=== PATIENT | female | born 1985 | race Caucasian/White ===

== ENCOUNTER 2023-08-14 07:41 | Outpatient (RCR) | payer OTHER, SELFPAY | END 2023-08-14 23:59 | disposition home or self-care (01) | LOC: RPT 07:41 | PROVIDERS: ATTENDING PHYSICIAN Obstetrics & Gynecology; FAMILY PHYSICIAN Family Medicine | DX: R10.2 Pelvic and perineal pain (principal); N39.3 Stress incontinence (female) (male); M62.81 Muscle weakness (generalized); Z73.6 Limitation of activities due to disability | CPT/HCPCS: 97163; 97530 ==

== ENCOUNTER 2023-09-18 10:08 | Outpatient (RCR) | payer OTHER, SELFPAY | END 2023-09-18 23:59 | disposition home or self-care (01) | LOC: RPT 10:08 | PROVIDERS: ATTENDING PHYSICIAN Obstetrics & Gynecology; FAMILY PHYSICIAN Family Medicine | DX: O26.893 Other specified pregnancy related conditions, third trimester (principal); R10.2 Pelvic and perineal pain; N39.3 Stress incontinence (female) (male); M62.81 Muscle weakness (generalized); Z73.6 Limitation of activities due to disability; M54.50 Low back pain, unspecified | CPT/HCPCS: 76816; 97110; 97112; 97140; 97530 ==

== ENCOUNTER 2023-10-10 00:12 | Observation (INO) | payer OTHER, SELFPAY ==
[2023-10-10 00:29] VITALS: BP 128/79; BMI 28.7
== END 2023-10-10 01:43 | disposition home or self-care (01) ==
LOC: LDRP 00:12
PROVIDERS: ADMITTING PHYSICIAN Obstetrics & Gynecology; FAMILY PHYSICIAN Family Medicine
DX: O36.8130 Decreased fetal movements, third trimester, not applicable or unspecified (principal); Z3A.38 38 weeks gestation of pregnancy; Z86.16 Personal history of COVID-19
CPT/HCPCS: 76815; 59025; 36415; 86850; 86900; 86901; G0378

== ENCOUNTER 2023-10-17 19:01 | Outpatient (RCR) | payer OTHER, SELFPAY | END 2023-10-17 23:59 | disposition home or self-care (01) | LOC: RPT 19:01 | PROVIDERS: ATTENDING PHYSICIAN Obstetrics & Gynecology; FAMILY PHYSICIAN Family Medicine | DX: N39.3 Stress incontinence (female) (male) (principal); R10.2 Pelvic and perineal pain; M62.81 Muscle weakness (generalized); Z73.6 Limitation of activities due to disability | CPT/HCPCS: 97110; 97112; 97140; 97530 ==

== ENCOUNTER 2023-10-24 14:06 | Outpatient (RCR) | payer OTHER, SELFPAY | END 2023-10-24 15:27 | disposition home or self-care (01) | LOC: RPT 14:06 | PROVIDERS: ATTENDING PHYSICIAN Obstetrics & Gynecology; FAMILY PHYSICIAN Family Medicine | DX: O26.899 Other specified pregnancy related conditions, unspecified trimester (principal); R32 Unspecified urinary incontinence; Z3A.00 Weeks of gestation of pregnancy not specified; R10.2 Pelvic and perineal pain; N39.3 Stress incontinence (female) (male); M62.81 Muscle weakness (generalized); Z73.6 Limitation of activities due to disability | CPT/HCPCS: 97110; 97140; 97530 ==

== ENCOUNTER 2023-10-27 06:05 | Inpatient (IN) | payer OTHER, SELFPAY ==
[2023-10-27] MEDS: BICITRA 30 ML PO (06:55)
[2023-10-27] MEDS: LR 1000 IV (06:55)
[2023-10-27] MEDS: TYLENOL 1000 MG PO (06:55)
[2023-10-27 07:04] LABS: Hematocrit 31.3 % (37.0-47.0); Hemoglobin 10.4 g/dL (12.0-16.0); Mean Corp Hgb Conc. 33.2 g/dL (33.0-37.0); Mean Corpuscular Hgb 27.6 pg (27.0-31.0); Mean Platelet Volume 11.5 fL (7.4-10.4); Platelet Count 273 10^3/uL (130-400); Red Blood Cell Count 3.77 10^6/uL (4.20-5.40); Red Cell Dist. Width 13.6 % (11.5-14.5)
[2023-10-27 07:19] VITALS: BP 120/73; BMI 28.9
[2023-10-27 07:22] VITALS: BMI 28.9
[2023-10-27] MEDS: ANCEF 10 IV (07:55)
[2023-10-27] MEDS: PITOCIN 30 UNITS/NSS 500 ML IV (09:00)
[2023-10-27] MEDS: TYLENOL 650 MG PO ×3 (12:00→21:24)
[2023-10-27] MEDS: TORADOL 15 MG IV ×2 (14:11→20:04)
[2023-10-28] MEDS: TYLENOL 650 MG PO ×2 (01:52→16:15)
[2023-10-28] MEDS: TORADOL 15 MG IV ×2 (01:52→08:32)
[2023-10-28] MEDS: MYLICON 80 MG PO ×4 (02:00→22:54)
[2023-10-28 04:53] LABS: Hematocrit 25.4 % (37.0-47.0); Hemoglobin 8.6 g/dL (12.0-16.0); Mean Corp Hgb Conc. 33.9 g/dL (33.0-37.0); Mean Corpuscular Hgb 28.7 pg (27.0-31.0); Mean Corpuscular Volume 84.7 fL (81.0-99.0); Mean Platelet Volume 11.8 fL (7.4-10.4); Platelet Count 233 10^3/uL (130-400); Red Cell Dist. Width 13.5 % (11.5-14.5); White Blood Cell Count 16.4 10^3/uL (4.8-10.8)
--- NOTE | 2023-10-28 07:38 | W.PN.ANS.POP ---
Anesthesia Post Operative
- Anesthesia Post Op Note
Vital Signs Stable-See Nursing Note: Yes
Airway Patent: Yes
Adequate Pain Control: Yes
Change in Mental Status: No
Current Postoperative Nausea & Vomiting: No
Anesthesia Complications: No
General Anesthetic Recall: No
Unplanned Admission: No
Post Op Hydration Adequate: Yes
[2023-10-28] MEDS: FEOSOL 325 MG PO ×2 (08:31→19:51)
[2023-10-28] MEDS: SENOKOT-S 1 TABLET PO (08:32)
[2023-10-28] MEDS: MOTRIN 600 MG PO ×2 (16:24→22:54)
[2023-10-28] MEDS: PERCOCET 5/325 1 TABLET PO (22:00)
[2023-10-29] MEDS: TYLENOL 650 MG PO (05:14)
[2023-10-29] MEDS: MOTRIN 600 MG PO ×3 (05:14→20:23)
[2023-10-29] MEDS: FEOSOL 325 MG PO ×2 (08:52→20:22)
[2023-10-29] MEDS: SENOKOT-S 1 TABLET PO (08:52)
[2023-10-29] MEDS: MYLICON 80 MG PO ×2 (08:52→20:51)
[2023-10-29] MEDS: PERCOCET 5/325 1 TABLET PO ×2 (15:15→22:23)
[2023-10-30] MEDS: MOTRIN 600 MG PO (04:07)
[2023-10-30] MEDS: TYLENOL 650 MG PO ×2 (08:25→11:59)
[2023-10-30] MEDS: SENOKOT-S 1 TABLET PO (08:25)
[2023-10-30] MEDS: FEOSOL 325 MG PO (08:25)
[2023-10-30] MEDS: MYLICON 80 MG PO (08:25)
--- NOTE | 2023-10-30 10:49 | W.DS.TRANS ---
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
-
Discharge Instructions:
Discharge Diagnosis/Procedures section
Instructions:
Stand-Alone Forms: LDRP Delivery
Changes to Home Medications: No
Discharge Medications:
DC Medications w/original date entered in [facility]
Pnv 102/Iron/Folate/Dha 1 tab PO DAILY Supplement 06/07/21
acetaminophen 325 mg tablet 650 mg (2 x 325 mg) PO Q4HPRN PRN mild pain #0 tabs 10/28/23
ferrous sulfate 325 mg (65 mg iron) tablet (FeroSul) 325 mg PO BID #0 tabs 10/28/23
ibuprofen 600 mg tablet 600 mg PO Q6HPRN PRN cramps #30 tabs 10/28/23
sennosides 8.6 mg-docusate sodium 50 mg tablet (Stool Softener-Stimulant Laxative) 1 tab PO DAILYPRN PRN constipation #0 tabs 10/28/23
oxycodone-acetaminophen 5 mg-325 mg tablet 1 tab PO Q4HPRN PRN moderate pain #6 tabs 10/30/23
Home Medication Changes
Pending Results: No
Total time spent discharging patient (in min): 20
--- NOTE | 2023-10-30 10:50 | W.DS.TRANS ---
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
-
Discharge Instructions:
Discharge Diagnosis/Procedures section
Instructions:
Stand-Alone Forms: LDRP Delivery
Changes to Home Medications: No
Discharge Medications:
DC Medications w/original date entered in [facility]
Pnv 102/Iron/Folate/Dha 1 tab PO DAILY Supplement 06/07/21
acetaminophen 325 mg tablet 650 mg (2 x 325 mg) PO Q4HPRN PRN mild pain #0 tabs 10/28/23
ferrous sulfate 325 mg (65 mg iron) tablet (FeroSul) 325 mg PO BID #0 tabs 10/28/23
ibuprofen 600 mg tablet 600 mg PO Q6HPRN PRN cramps #30 tabs 10/28/23
sennosides 8.6 mg-docusate sodium 50 mg tablet (Stool Softener-Stimulant Laxative) 1 tab PO DAILYPRN PRN constipation #0 tabs 10/28/23
oxycodone-acetaminophen 5 mg-325 mg tablet 1 tab PO Q4HPRN PRN moderate pain #6 tabs 10/30/23
Home Medication Changes
Pending Results: No
[2023-10-31 12:39] LABS: Syphilis/T. pallidum Ab Reflex Negative (Negative)
== END 2023-10-30 12:57 | disposition home or self-care (01) | DRG 788 ==
LOC: LDRP 06:05
PROVIDERS: ADMITTING PHYSICIAN Obstetrics & Gynecology
PROC: 6A550ZT Pheresis of Cord Blood Stem Cells, Single (ICD-10-PCS; 2023-10-27)
PROC: 10D00Z1 Extraction of Products of Conception, Low, Open Approach (ICD-10-PCS; 2023-10-27)
PROC: 0HB7XZZ Excision of Abdomen Skin, External Approach (ICD-10-PCS; 2023-10-27)
DX: O34.211 Maternal care for low transverse scar from previous cesarean delivery (principal); N85.8 Other specified noninflammatory disorders of uterus; Z3A.40 40 weeks gestation of pregnancy; Z37.0 Single live birth; L91.0 Hypertrophic scar; O99.72 Diseases of the skin and subcutaneous tissue complicating childbirth; O48.0 Post-term pregnancy; O99.824 Streptococcus B carrier state complicating childbirth; O69.81X0 Labor and delivery complicated by cord around neck, without compression, not applicable or unspecified; O90.81 Anemia of the puerperium; D64.9 Anemia, unspecified
CPT/HCPCS: 85027; 86780; 86850; 86900; 86901

== ENCOUNTER → 2024-11-25 10:01 | Outpatient (REF) | payer BC, SELFPAY | LOC: PNTC 10:01 | PROVIDERS: ATTENDING PHYSICIAN Obstetrics & Gynecology | DX: O09.529 Supervision of elderly multigravida, unspecified trimester (principal) | CPT/HCPCS: 76811; 76817 ==

== ENCOUNTER 2025-04-03 08:07 | Inpatient (IN) | payer BC, SELFPAY ==
[2025-04-03 08:25] VITALS: BMI 27.5
[2025-04-03 08:26] VITALS: BP 127/82
[2025-04-03] MEDS: LR 1000 IV (08:45)
[2025-04-03 08:50] LABS: Hematocrit 32.0 % (37.0-47.0); Hemoglobin 10.6 g/dL (12.0-16.0); Mean Corp Hgb Conc. 33.1 g/dL (33.0-37.0); Mean Corpuscular Volume 79.6 fL (81.0-99.0); Platelet Count 237 10^3/uL (130-400); Red Cell Dist. Width 13.8 % (11.5-14.5)
[2025-04-03] MEDS: TYLENOL 975 MG PO (09:13)
[2025-04-03] MEDS: BICITRA 30 ML PO (09:38)
[2025-04-03] MEDS: ANCEF 10 IV (09:38)
[2025-04-03] MEDS: TORADOL 15 MG IV (18:45)
[2025-04-03] MEDS: MYLICON 80 MG PO ×2 (18:46→22:59)
[2025-04-03] MEDS: COLACE 100 MG PO (19:29)
[2025-04-04] MEDS: TORADOL 15 MG IV ×3 (00:13→12:56)
[2025-04-04 03:38] LABS: Hematocrit 27.1 % (37.0-47.0); Hemoglobin 9.1 g/dL (12.0-16.0); Mean Corp Hgb Conc. 33.6 g/dL (33.0-37.0); Mean Corpuscular Volume 80.7 fL (81.0-99.0); Platelet Count 210 10^3/uL (130-400); Red Cell Dist. Width 13.8 % (11.5-14.5)
[2025-04-04] MEDS: PRENATAL PLUS 1 TABLET PO (08:30)
[2025-04-04] MEDS: COLACE 100 MG PO ×2 (08:30→20:01)
[2025-04-04] MEDS: MYLICON 80 MG PO (08:30)
[2025-04-04] MEDS: FEOSOL 325 MG PO (08:30)
[2025-04-04 12:57] LABS: Syphilis/T. pallidum Ab Reflex Negative (Negative)
[2025-04-04] MEDS: MOTRIN 600 MG PO (20:01)
[2025-04-04] MEDS: TYLENOL 650 MG PO (20:01)
[2025-04-05] MEDS: ROXICODONE 5 MG PO ×2 (00:13→22:35)
[2025-04-05] MEDS: MOTRIN 600 MG PO ×4 (03:45→22:35)
[2025-04-05] MEDS: TYLENOL 650 MG PO ×3 (03:45→16:19)
[2025-04-05] MEDS: FEOSOL 325 MG PO (08:22)
[2025-04-05] MEDS: PRENATAL PLUS 1 TABLET PO (08:22)
[2025-04-05] MEDS: COLACE 100 MG PO ×2 (08:22→20:35)
[2025-04-05] MEDS: MYLICON 80 MG PO (20:46)
[2025-04-05] MEDS: SENOKOT 17.2 MG PO (22:35)
[2025-04-06] MEDS: ROXICODONE 5 MG PO (06:54)
[2025-04-06] MEDS: MOTRIN 600 MG PO (06:54)
[2025-04-06] MEDS: FEOSOL 325 MG PO (08:29)
[2025-04-06] MEDS: PRENATAL PLUS 1 TABLET PO (08:29)
[2025-04-06] MEDS: COLACE 100 MG PO (08:29)
--- NOTE | 2025-04-06 09:30 | W.DS.TRANS ---
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
-
Discharge Instructions:
Discharge Diagnosis/Procedures caesarean section
Instructions:
Stand-Alone Forms: LDRP Delivery
Changes to Home Medications: No
Discharge Medications:
DC Medications w/original date entered in [facility]
Pnv 102/Iron/Folate/Dha 1 tab PO DAILY Supplement 06/07/21
ibuprofen 600 mg tablet 600 mg PO Q6HPRN PRN cramps #30 tabs 04/06/25
oxycodone 5 mg tablet 5 mg PO Q4HPRN PRN moderate pain #10 tabs 04/06/25
Home Medication Changes
Pending Results: No
Total time spent discharging patient (in min): 20
== END 2025-04-06 13:25 | disposition home or self-care (01) | DRG 788 ==
LOC: LDRP 08:07
PROVIDERS: ADMITTING PHYSICIAN Obstetrics & Gynecology; FAMILY PHYSICIAN Hospitalist
PROC: 10D00Z1 Extraction of Products of Conception, Low, Open Approach (ICD-10-PCS; 2025-04-03)
DX: O34.211 Maternal care for low transverse scar from previous cesarean delivery (principal); Z3A.40 40 weeks gestation of pregnancy; Z37.0 Single live birth; O77.0 Labor and delivery complicated by meconium in amniotic fluid; O69.81X0 Labor and delivery complicated by cord around neck, without compression, not applicable or unspecified; L91.0 Hypertrophic scar; O99.72 Diseases of the skin and subcutaneous tissue complicating childbirth; O99.824 Streptococcus B carrier state complicating childbirth
CPT/HCPCS: 36415; 85027; 86780; 86850; 86900; 86901